=== PATIENT | female | born 1960 ===

== ENCOUNTER → 2022-04-03 10:19 | Outpatient (POV) | payer SELFPAY | PROVIDERS: Visit Provider Dermatology | DX: Z00.00 Encounter for general adult medical examination without abnormal findings (principal) ==

== ENCOUNTER → 2023-04-16 08:22 | Outpatient (POV) | payer SELFPAY | PROVIDERS: Visit Provider Dermatology | DX: Z00.00 Encounter for general adult medical examination without abnormal findings (principal) ==

== ENCOUNTER 2024-05-05 11:29 | Outpatient (POV) | payer SELFPAY | END 2024-05-05 23:59 | disposition home or self-care (01) | LOC: SC 11:30 | PROVIDERS: Visit Provider Dermatology | DX: Z00.00 Encounter for general adult medical examination without abnormal findings (principal) ==